=== PATIENT | male | born 1990 | race Two or more races ===

== ENCOUNTER 2022-11-13 00:23 | Emergency (ER) | payer SELFPAY ==
[~2022-11-13] VITALS: Ht 180.3 cm; Wt 134.1 kg
[2022-11-13] MEDS ORDERED: KETOROLAC TROMETHAMINE 30 MG/ML VIAL IM ONE (00:45)
[2022-11-13] MEDS ORDERED: ACETAMINOPHEN 500 MG TABLET PO ONE (00:45)
[2022-11-13 00:51] VITALS: BP 162/87
== END 2022-11-13 03:07 | disposition home or self-care (01) ==
LOC: EMS 00:23
DX: S82.891A Other fracture of right lower leg, initial encounter for closed fracture (principal); F17.210 Nicotine dependence, cigarettes, uncomplicated; F12.90 Cannabis use, unspecified, uncomplicated; F14.90 Cocaine use, unspecified, uncomplicated; F15.90 Other stimulant use, unspecified, uncomplicated; W01.0XXA Fall on same level from slipping, tripping and stumbling without subsequent striking against object, initial encounter; Y93.89 Activity, other specified; Y92.89 Other specified places as the place of occurrence of the external cause; Y99.8 Other external cause status
CPT/HCPCS: 99284; 29515; 73590; 73610; 73630; 96372; J1885